=== PATIENT | female | born 1950 | race Caucasian/White ===

== ENCOUNTER 2023-08-16 00:39 | Emergency (ER) | payer OTHER, SELFPAY ==
[2023-08-16 00:39] VITALS: BMI 19.9
[2023-08-16 00:47] VITALS: BP 164/98
--- NOTE | 2023-08-16 01:10 | ED.GENMED ---
History of Present Illness
<ORIN Marques - Last Filed: 08/16/23 03:26>
General
Chief Complaint: Headache
Time Seen by Provider: 08/16/23 01:10
Travel History
Have you had any contact with someone who has COVID-19?: No
Do you have any symptoms of coronavirus? Fever > 100 degrees, chills, cough, shortness of breath, sore throat, loss of taste or smell, muscle aches, or headache?: No
History of Present Illness
History of Present Illness:
This is a 72 yo F PMH migraines, HTN, HLD, CAD presenting for headache x 6 hours. She states this headache is R sided with a gradual onset and rated as 9/10 pain, with no identified inciting incident. She states associated fever and vomiting episode
at home prior to arrival. She describes cold/flu symptoms started Wednesday which have been improving. She states a history of chronic migraines which are typically unilateral. She denies recent head trauma, LOC, hearing/vision loss.
Past History
<ORIN Marques - Last Filed: 08/16/23 03:26>
Past History
ED Past Medical History: Other (migraines) and Other (High-grade headache)
Social History
Tobacco: Non-smoker
Alcohol: None
Personal:
Living: with family
Employment: Employed
Family History
Family History: Diabetes and Other (Coronary artery disease, hyperlipidemia)
Review of Systems
<ORIN Marques - Last Filed: 08/16/23 03:26>
Review of Systems
Allergies reviewed?: Yes
Constitutional: Reports fever
EENT: Reports no symptoms
Respiratory: Reports no symptoms
Cardiac: Reports no symptoms
Phy Exam
<ORIN Marqeus - Last Filed: 08/16/23 03:26>
General Physical Exam
General Presentation: well appearing
General age: appears stated age
General Mental: alert
Cardiovascular Exam
Cardiovascular Exam: regular rate/rhythm
Pulmonary Exam
Pulmonary Exam: lungs clear
Neurological Exam
Neurological Exam: alert, oriented x3, no motor deficits, no sensory deficits and speech normal
Course
<ORIN Marques - Last Filed: 08/16/23 03:26>
Orders/Labs/Results
Orders:
Orders
08/16/23 00:53
Electrocardiogram (*1) Urgent
Reason for Study: Chest Pain
EKG- Treatment ONCE
08/16/23 01:18
Acetaminophen [Tylenol] 1,000 mg .ROUTE .STK-MED ONE
08/16/23 01:21
Acetaminophen [Tylenol] 1,000 mg PO NOW STA
08/16/23 01:37
COVID-19 Antigen Urgent
Source: Nasal Swab
Influenza A+B Rapid Molecular Urgent
EDGARDO Source: Nasal Swab
Specimen Description:
08/16/23 02:14
0.9% Sodium Chloride 1000 ml [Nss] 1,000 ml IV BOLUS
Diphenhydramine [Benadryl] 25 mg IV NOW STA
Prochlorperazine [Compazine] 5 mg IV NOW STA
Vital Signs
Initial and Last Documented VS:
Initial Vital Signs
Temp Pulse Resp BP Pulse Ox
98.2 F 84 18 164/98 95
08/16/23 00:47 08/16/23 00:47 08/16/23 00:47 08/16/23 00:47 08/16/23 00:47
Last Documented Vital Signs
Temp Pulse Resp BP Pulse Ox
99.3 F 68 18 175/93 95
08/16/23 02:39 08/16/23 03:01 08/16/23 00:47 08/16/23 03:01 08/16/23 03:01
<Iza Mireles DO - Last Filed: 08/16/23 03:26>
Orders/Labs/Results
Orders:
Orders
08/16/23 00:53
Electrocardiogram (*1) Urgent
Reason for Study: Chest Pain
EKG- Treatment ONCE
08/16/23 01:18
Acetaminophen [Tylenol] 1,000 mg .ROUTE .STK-MED ONE
08/16/23 01:21
Acetaminophen [Tylenol] 1,000 mg PO NOW STA
08/16/23 01:37
COVID-19 Antigen Urgent
Source: Nasal Swab
Influenza A+B Rapid Molecular Urgent
EDGARDO Source: Nasal Swab
Specimen Description:
08/16/23 02:14
0.9% Sodium Chloride 1000 ml [Nss] 1,000 ml IV BOLUS
Diphenhydramine [Benadryl] 25 mg IV NOW STA
Prochlorperazine [Compazine] 5 mg IV NOW STA
Vital Signs
Initial and Last Documented VS:
Initial Vital Signs
Temp Pulse Resp BP Pulse Ox
98.2 F 84 18 164/98 95
08/16/23 00:47 08/16/23 00:47 08/16/23 00:47 08/16/23 00:47 08/16/23 00:47
Last Documented Vital Signs
Temp Pulse Resp BP Pulse Ox
99.3 F 68 18 175/93 95
08/16/23 02:39 08/16/23 03:01 08/16/23 00:47 08/16/23 03:01 08/16/23 03:01
<ORIN Marques - Last Filed: 08/16/23 03:26>
MDM/Problems Addressed
Differential Diagnosis Includes:
Migraine headache
-unilateral headache, fever, vomiting
-improved with tylenol
<Iza Mireles DO - Last Filed: 08/16/23 03:26>
*Pulse Oximetry
Patient hypoxic: no
*EKG
Interpreted by ED Provider?: Yes
Interpretation: normal
Comparison EKG: no comparison EKG present
Rate: normal
Rhythm: sinus
[place]: normal axis
Interval: normal interval
QRS Pattern: normal QRS
Ischemia: no ischemia
*Compliance Project Manager Interpretation
Rate: normal
Interpretation: normal
Rhythm: sinus
*Critical Care Note
Total Time (30-74mins, 75-104mins- exclusive of procedures): Not Applicable
ED Attending Note
<ORIN Marques - Last Filed: 08/16/23 03:26>
-
Portions of this chart may have been created with voice recognition software.� Occasional wrong word or��sound alike� substitutions may have occurred due to the inherent limitations of voice recognition software.
<Iza Mireles DO - Last Filed: 08/16/23 03:26>
ED Attending Note
Patient seen and examined by attending physician: Yes
I performed the substantive portion of visit, reviewed & personally made and approve the management plan that is documented in note by myself or JOZEF.: Yes
I performed a history and physical exam of patient and discussed management with resident, I reviewed resident's note and agree with documented findings and plan of care.: Yes
ED Attending Note:
This is a 72-year-old woman who has history of migraine headaches which occur sporadically and generally resolve with Tylenol. She has had previous unremarkable neurology evaluations including MRI/MRA of the brain which shows stable minimal ectasia
of distal right internal carotid artery but no evidence of aneurysm, most recent study April 2023.
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
She complains of URI symptoms that began 1 week ago, cough, nasal congestion, intermittent fever. She had been feeling improved yesterday but tonight developed a headache, generalized right-sided that began swelling onset around 6 to 7 PM, has
gotten progressively worse with nausea and 1 episode of dry heaves. Headache feels similar to previous episodes of migraines and on previous ED visit in 2013 she describes similar hemispheric headache with nausea. At that time headache resolved
promptly with IV Compazine.
After an episode of vomiting tonight she developed brief lower substernal chest discomfort which has since resolved. Intermittent dry cough but no shortness of breath, no palpitations. She does admit to fever tonight with generalized aches. She
has not taken anything for her symptoms tonight.
Low-grade fever of 99.3 �F noted.
Her daily medications include losartan, vitamins, co-Q10
GENERAL: 72-year-old woman who appears her stated age, bright and alert, pleasant, appears in no acute distress. Easily communicative.
EYE: pupils equal and reactive. anicteric
NECK: Supple, nontender, no meningismus, no significant adenopathy.
ENT: oral mucosa is moist. No rhinorrhea.
CARDIAC: Regular rate and rhythm. no murmur.
LUNGS: Clear breath sounds bilaterally, no acute respiratory distress, no wheezes/rales/rhonchi
ABDOMEN: Soft, nondistended, without focal tenderness, no r/g, no cvat. normoactive BS.
NEUROLOGICAL: Alert and oriented x3, no focal neuro deficits. Gait is steady.
SKIN: Warm and dry, normal color, skin intact. No rash.
MUSCULOSKELETAL: No C/C/E. peripheral pulses are full and equal b/l. No palpable tenderness.
PSYCH: Normal and appropriate interaction.
I suspect acute migraine headache. Patient admits that headache is similar to her previous migraines.
She is noted to have low-grade fever but has had URI symptoms over the past week.
There is no meningismus, no risk factors for immunocompromise nor risk factors for bacteremia.
She has been given a dose of Tylenol for fever with resolution of fever, myalgias but continues with mild headache.
Will treat headache with IV Compazine, Benadryl and IV fluids. Prompt relief of headache with similar migraine cocktail 2012.
Patient noted brief chest pain after an episode of vomiting. Chest pain has since resolved. EKG is unremarkable. History is not concerning for ACS.
Rapid COVID and influenza testing are pending.
At this point no indication for laboratory studies nor radiologic studies.
08/16/2023 03:00 AM
Patient reports complete relief of headache, feeling well and is eager to be discharged to home. She has already gotten herself dressed.
She remains afebrile. Flu and COVID testing are negative.
I suspect viral URI and exacerbation of intermittent migraine headaches.
She continues to deny return of chest pain, has been ambulatory throughout exam room without symptomatology.
Recommend supportive measures, staying well-hydrated, Tylenol as needed for fever, aches, headache.
Prompt follow-up with PCP for recheck.
Return precautions discussed.
Discharge Plan
Departure
Patient Disposition: Home (Routine Discharge)
Date of Disposition: 08/16/23
Time of Disposition: 03:08
Patient with high blood pressure during this ER visit?: No
Condition: Good
Discharge Problem:
Headache, migraine, Upper respiratory infection, viral
Instructions: Migraines (DC), Viral Upper Respiratory Infection, Adult (DC)
Prescriptions:
No Action
Migraine Relief Caplet
Patient Comments:
unknown name
Referrals:
Marisol Lu, DO [Family Provider] - Call in 1-3 days for appt
Interventions
Interventions:
*Risk Screen - Suicide Last Done: 08/16/23 00:47
*Neglect/Abuse Screening Last Done: 08/16/23 00:47
ED- Fall Risk Assessment Last Done: 08/16/23 02:00
*Nursing Disposition Last Done: 08/16/23 03:14
ED- Cardiac Assessment Last Done: 08/16/23 02:00
ED- Neurological Assessment Last Done: 08/16/23 02:00
ED-Psychological Assessment Last Done: 08/16/23 02:00
Discharge Date and Time
Discharge Date/Time: 08/16/23 03:16
Print Language: [id number]
[2023-08-16] MEDS: TYLENOL 1000 MG PO (01:21)
[2023-08-16 01:59] LABS: COVID-19 Antigen Negative (Negative)
[2023-08-16] MEDS: BENADRYL 25 MG IV (02:20)
[2023-08-16] MEDS: NSS 1000 IV (02:20)
[2023-08-16] MEDS: COMPAZINE 5 MG IV (02:20)
[2023-08-16 02:26] VITALS: BP 145/82
[2023-08-16 03:01] VITALS: BP 175/93
== END 2023-08-16 03:16 | disposition home or self-care (01) ==
LOC: EMR 00:39
PROVIDERS: EMERGENCY PHYSICIAN Emergency Medicine; FAMILY PHYSICIAN Family Medicine
DX: G43.909 Migraine, unspecified, not intractable, without status migrainosus (principal); J06.9 Acute upper respiratory infection, unspecified; R50.9 Fever, unspecified; R11.10 Vomiting, unspecified; Z11.52 Encounter for screening for COVID-19; I10 Essential (primary) hypertension; E78.5 Hyperlipidemia, unspecified; I25.10 Atherosclerotic heart disease of native coronary artery without angina pectoris
CPT/HCPCS: 99284; 96374; 96375; 96361; 87502; 87811; 93005

== ENCOUNTER → 2024-01-07 12:28 | Outpatient (REF) | payer OTHER, SELFPAY | LOC: HWRAD 12:28 | PROVIDERS: ATTENDING PHYSICIAN Family Medicine | DX: M25.512 Pain in left shoulder (principal) | CPT/HCPCS: 73030 ==

== ENCOUNTER → 2024-03-28 08:29 | Outpatient (REF) | payer OTHER, SELFPAY | LOC: HWWDC 08:29 | PROVIDERS: ATTENDING PHYSICIAN Family Medicine | DX: Z12.31 Encounter for screening mammogram for malignant neoplasm of breast (principal) | CPT/HCPCS: 77063; 77067 ==

== ENCOUNTER → 2024-04-03 08:28 | Outpatient (REF) | payer OTHER, SELFPAY | LOC: HWRAD 08:28 | PROVIDERS: ATTENDING PHYSICIAN Family Medicine | DX: M81.0 Age-related osteoporosis without current pathological fracture (principal) | CPT/HCPCS: 77080 ==

== ENCOUNTER → 2025-01-19 10:19 | Outpatient (REF) | payer OTHER, SELFPAY | LOC: RAD 10:19 | PROVIDERS: ATTENDING PHYSICIAN Nurse Practitioner Family; FAMILY PHYSICIAN Family Medicine; REFERRING PHYSICIAN Internal Medicine Cardiovascular Disease | DX: E16.2 Hypoglycemia, unspecified (principal) | CPT/HCPCS: 74170; Q9967 ==

== ENCOUNTER → 2025-04-25 10:13 | Outpatient (REF) | payer OTHER, SELFPAY | LOC: HWWDC 10:13 | PROVIDERS: ATTENDING PHYSICIAN Family Medicine | DX: Z12.31 Encounter for screening mammogram for malignant neoplasm of breast (principal) | CPT/HCPCS: 77063; 77067 ==